=== PATIENT | male | born 1985 | race Caucasian/White ===

== ENCOUNTER 2023-11-08 17:19 | Emergency (ER) | payer OTHER ==
--- NOTE | 2023-11-08 17:30 | ED Physician Documentation ---
PD HPI HEAD INJURY - Stated complaint Stated Complaint: HEAD LAC - History obtained from History obtained from: Patient - History of Present Illness Mechanism of head injury: Fell Where head injury occurred: Home Timing - onset: Last night (he states he was drinking heavily while playing video games last evening. He does not remember injury but awoke this morning with dried blood on forehead/scalp and swelling left frontal scalp. Headache and feeling nausea/off balance, but not sure if head injury or hangover. Denies daily drinking.) Location of injury: Left, Front Associated symptoms: LOC (he does not know if fell/passed out from alcohol (does not drink regularly and had several) or concussive, but does not remember inury nor getting to bed.) Symptoms worsen with: Palpation Contributing factors: Intoxicated. No: Anticoagulated Similar symptoms before: Has not had sx before Review of Systems Eyes: denies: Loss of vision, Decreased vision Neurologic: reports: Altered mental status (feels off balance and slow thinking), Headache, Head injury. denies: Focal weakness, Numbness PD PAST MEDICAL HISTORY - Past Medical History Cardiovascular: None Neuro: None - Present Medications Home Medications: Ambulatory Orders Medication Instructions Recorded Confirmed No Known Home Medications 11/08/23 11/08/23 - Allergies Allergies/Adverse Reactions: Allergies Allergy/AdvReac Type Severity Reaction Status Date / Time No Known Drug Allergies Allergy Verified 11/08/23 17:25 PD ED PE NORMAL - Vitals Vital signs reviewed: Yes - General General: Alert and oriented X 3, No acute distress, Well developed/nourished - HEENT HEENT: PERRL, EOMI, Other (left frontal scalp with 2 cm laceration to fatty tissue with dried blood. No FB an no bleeding currently. Edges fairly close together. ) - Neck Neck: Supple, no meningeal sign, No bony TTP - Cardiac Cardiac: RRR, No murmur - Respiratory Respiratory: No respiratory distress, Clear bilaterally, Other (no chestwall tenderness. 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 Frontal scalp hematoma noted. ), EMP independent interpretation of test PD Medical Decision Making - ED course Complexity details: reviewed results (head CT is normal. He does not work for 2 days so time for concussive effect to improve. ), considered differential (fall with head injury. Lac can be treated with steri-strips. Has some neuro symptoms that could be post-alcohol or concussive, but get CT to ensure not ICH. ), d/w patient Departure - Departure Disposition: 01 Home, Self Care Clinical Impression: Fall from slip, trip, or stumble, Scalp laceration, Head contusion, Mild concussion Condition: Stable Record reviewed to determine appropriate education?: Yes Instructions: ED Concussion Comments: Your CT scan does not show any signs of fracture, bleeding, swelling in the brain compartment. Obviously of the swelling and laceration on the scalp. Allow the Steri-Strips to remain in place and clean and dry. They should fall off on their own after several days or so. At that point just regular treatment with cleaning and ointment and a Band-Aid. Tylenol every 4-6 hours if needed for pains or ibuprofen every 3 3 times a day if needed for pains. Rest and take it easy for the next couple of days. Your feelings of lightheaded and off-balance etc. are likely a mild concussive type effect though hopefully might be just a hangover effect from drinking last night. Either way I would anticipate improvement in the symptoms over the next couple of days and be able to resume back to normal activity after that. Follow-up with your primary care if residual symptoms longer. Forms: PCP List Discharge Date/Time: 11/08/23 19:01
[2023-11-08] MEDS: ACETAMINOPHEN 500 MG TABLET PO STA (18:04)
[2023-11-08] MEDS: IBUPROFEN 600 MG TABLET PO STA (18:04)
--- NOTE | 2023-11-08 18:19 | CT Report ---
PROCEDURE: Head WO INDICATIONS: fell/syncope with head injury, concussive sxs. TECHNIQUE: Noncontrast 4.5 mm thick angled axial sections acquired from the foramen magnum to the vertex. For r adiation dose reduction, the following was used: automated exposure control, adjustment of mA and/or kV according to patient size. COMPARISON: None. FINDINGS: Image quality: Excellent. CSF spaces: Basal cisterns are patent. No extra-axial fluid collections. Ventricles are normal in size and shape. Brain: No midline shift. No intracranial masses or hemorrhage. Wright-white matter interface is norm al. Skull and face: Calvarium and visualized facial bones are intact, without suspicious lesions. Sinuses: Visualized sinuses and mastoids are clear. IMPRESSION: No acute intracranial pathology. Reviewed by: Alan Oden MD on 11/08/2023 5:17 PM [facility] Approved by: Alan Oden MD on 11/08/2023 5:17 PM [facility] Station ID: [id number]
[2023-11-08 18:56] VITALS: BP 117/73; O2SAT 100
== END 2023-11-08 19:01 | disposition home or self-care (01) ==
LOC: ED 17:19
DX: S01.01XA Laceration without foreign body of scalp, initial encounter (principal); S06.0X0A Concussion without loss of consciousness, initial encounter; W01.0XXA Fall on same level from slipping, tripping and stumbling without subsequent striking against object, initial encounter
CPT/HCPCS: 70450; 99283; 99284; A9270